=== PATIENT | male | born 1965 | race Caucasian/White ===

== ENCOUNTER 2022-04-03 04:21 | Emergency (ER) | payer SELFPAY ==
[2022-04-03 04:24] VITALS: BP 116/65; PULSE 99
[2022-04-03] MEDS ORDERED: Tamsulosin 0.4 MG Cap.ER PO ONE (05:02)
[2022-04-03] MEDS ORDERED: Morphine 2 MG/ML SYRINGE IVPUSH ONE (05:14)
[2022-04-03] MEDS ORDERED: Pantoprazole 40 MG Vial IVPUSH ONE (05:17)
[2022-04-03] MEDS ORDERED: Sodium Chloride 0.9% 500 ML IV SCH (06:00)
== END 2022-04-03 07:01 | disposition home or self-care (01) ==
LOC: CC.ED 04:21
DX: K92.1 Melena (principal); R33.9 Retention of urine, unspecified; R97.20 Elevated prostate specific antigen [PSA]; M10.9 Gout, unspecified; E66.9 Obesity, unspecified; F17.210 Nicotine dependence, cigarettes, uncomplicated; Z68.43 Body mass index [BMI] 50.0-59.9, adult; Z79.899 Other long term (current) drug therapy
CPT/HCPCS: 36415; 80053; 82272; 85025; 96374; 96375; 99284; 99284-25; A9270-GY; C9113; J2270; J7040

== ENCOUNTER 2022-12-30 12:16 | Inpatient (IN) | payer BC ==
[2022-12-30] MEDS ORDERED: Acetaminophen 500 MG Tab PO PRN (18:21)
[2022-12-30] MEDS ORDERED: Ondansetron 4 MG Tab.DIS PO PRN (18:21)
[2022-12-30] MEDS ORDERED: Calcium Carbonate 500 MG Tab.Chew PO PRN (18:21)
[2022-12-30] MEDS ORDERED: oxyCODONE 5 MG Tab PO PRN (18:21)
[2022-12-30] MEDS: Melatonin 3 MG Tab PO SCH (20:32)
[2022-12-30] MEDS: Gabapentin 100 MG Cap PO SCH (20:32)
[2022-12-30] MEDS: Apixaban 5 MG Tab PO SCH (20:33)
[2022-12-30] MEDS: Metoprolol Tartrate 50 MG Tab PO SCH (20:33)
[2022-12-30] MEDS: Oxyquinoline/Emollient 0.3% Oint 4 OZ Canister TOP SCH (21:01)
[2022-12-31] MEDS: Pantoprazole 40 MG Tab.CR PO SCH (06:46)
[2022-12-31] MEDS: Tamsulosin 0.4 MG Cap.ER PO SCH (07:50)
[2022-12-31] MEDS: Apixaban 5 MG Tab PO SCH ×2 (07:50→19:23)
[2022-12-31] MEDS: Oxyquinoline/Emollient 0.3% Oint 4 OZ Canister TOP SCH ×2 (07:51→19:23)
[2022-12-31] MEDS: Lactobacillus Rhamnosus GG (Probiotic) Cap PO SCH (07:51)
[2022-12-31] MEDS: Metoprolol Tartrate 50 MG Tab PO SCH ×3 (10:11→19:22)
[2022-12-31] MEDS: Melatonin 3 MG Tab PO SCH (19:23)
[2022-12-31] MEDS: Gabapentin 100 MG Cap PO SCH (19:23)
[2022-12-31] MEDS: oxyCODONE 5 MG Tab PO PRN (22:57)
[2023-01-01] MEDS: Pantoprazole 40 MG Tab.CR PO SCH (06:54)
[2023-01-01] MEDS: Apixaban 5 MG Tab PO SCH ×2 (07:55→19:48)
[2023-01-01] MEDS: Tamsulosin 0.4 MG Cap.ER PO SCH (07:55)
[2023-01-01] MEDS: Metoprolol Tartrate 50 MG Tab PO SCH ×2 (07:55→19:48)
[2023-01-01] MEDS: Lactobacillus Rhamnosus GG (Probiotic) Cap PO SCH (07:56)
[2023-01-01] MEDS: Oxyquinoline/Emollient 0.3% Oint 4 OZ Canister TOP SCH ×2 (07:59→19:47)
[2023-01-01] MEDS: Gabapentin 100 MG Cap PO SCH (19:48)
[2023-01-01] MEDS: Melatonin 3 MG Tab PO SCH (19:48)
[2023-01-01] MEDS: oxyCODONE 5 MG Tab PO PRN (23:18)
[2023-01-02] MEDS: Pantoprazole 40 MG Tab.CR PO SCH (06:36)
[2023-01-02] MEDS: Metoprolol Tartrate 50 MG Tab PO SCH ×3 (07:33→20:09)
[2023-01-02] MEDS: Apixaban 5 MG Tab PO SCH ×2 (07:33→20:06)
[2023-01-02] MEDS: Tamsulosin 0.4 MG Cap.ER PO SCH (07:34)
[2023-01-02] MEDS: Oxyquinoline/Emollient 0.3% Oint 4 OZ Canister TOP SCH ×2 (07:35→20:08)
[2023-01-02] MEDS: Lactobacillus Rhamnosus GG (Probiotic) Cap PO SCH (07:35)
[2023-01-02] MEDS: Gabapentin 100 MG Cap PO SCH (20:06)
[2023-01-02] MEDS: Melatonin 3 MG Tab PO SCH (20:07)
[2023-01-02] MEDS: oxyCODONE 5 MG Tab PO PRN (23:09)
[2023-01-03] MEDS: Tamsulosin 0.4 MG Cap.ER PO SCH (07:37)
[2023-01-03] MEDS: Metoprolol Tartrate 50 MG Tab PO SCH (07:37)
[2023-01-03] MEDS: Pantoprazole 40 MG Tab.CR PO SCH (07:37)
[2023-01-03] MEDS: Lactobacillus Rhamnosus GG (Probiotic) Cap PO SCH (07:37)
[2023-01-03] MEDS: Oxyquinoline/Emollient 0.3% Oint 4 OZ Canister TOP SCH (07:40)
== END 2023-01-03 16:45 | disposition home or self-care (01) | DRG 861 ==
LOC: CC.MS 16:05 → UNDOADMIN 16:05 → CC.MS 18:09
PROVIDERS: ADMIT Nurse Practitioner Family; ATTEND Nurse Practitioner Family
DX: R53.1 Weakness (principal); M10.9 Gout, unspecified; G89.29 Other chronic pain; E66.9 Obesity, unspecified; R53.81 Other malaise; Z85.46 Personal history of malignant neoplasm of prostate; Z90.49 Acquired absence of other specified parts of digestive tract; Z79.899 Other long term (current) drug therapy; Z93.3 Colostomy status; Z98.890 Other specified postprocedural states; Z79.01 Long term (current) use of anticoagulants; Z68.41 Body mass index [BMI] 40.0-44.9, adult
CPT/HCPCS: 97110-GP; 97161-GP; A9270-GY